=== PATIENT | male | born 1995 | race Caucasian/White ===

== ENCOUNTER 2019-04-11 17:16 | Emergency (ER) | payer SELFPAY ==
[2019-04-11 17:23] VITALS: BP 140/80; PULSE 110; RESP 18; TEMP 37; O2SAT 99
--- NOTE | 2019-04-11 17:35 | W.ED.GENAD ---
Discharge Plan Disposition Patient Disposition: HOME Condition: Improving Discharge Details Chief Complaint: Laceration Clinical Impression: Laceration of left thumb Primary Care Provider: Unknown,Unknown ED Provider: José Sanches Discharge Instructions Instructions: Laceration (ED) Additional Instructions: Leave dressing in place for 72 to 96 hours. Then may remove and perform once daily dressing changes for approximately another week. Return to the emergency department for any acute concern including development of fever, redness, foul-smelling discharge from the wound or any other acute concern. Medical Decision Making 24-year-old otherwise healthy male presents with avulsion injury to the distal tip of his left thumb that occurred while using a kitchen mandolin. Irrigated, cleansed, no evidence of foreign body. No indication for suture repair. Gelfoam and Vaseline impregnated gauze were placed followed by Kerlix and tube gauze. Patient will leave in place for 72 to 96 hours, then may remove and switch to daily dressing changes. He understands return precautions to the ER. HPI General Mode of arrival: ambulatory. Date/Time Provider Initiated Documentation: 04/11/19 17:18. Limitations to Documentation: no limitations. Information obtained by: patient and family. History of Present Illness 24 year old M presents to the emergency department with the chief complaint of Left thumb avulsion from a mandolin, described as mild, and is localized to the left and upper extremity. Patient reports no radiation. Patient started experiencing this minute(s) and it has been constant. No relieving factors improve symptom(s), No exacerbating factors reported . Patient did receive the following treatments prior to arrival, other (Dressing placed) Related Data Allergies Allergy/AdvReac Type Severity Reaction Status Date / Time strawberry Allergy Unverified 04/11/19 17:27 metoprolol AdvReac Intermediate Unverified 04/11/19 17:27 General Stated Complaint: Laceration CLIFTON: 3 Review of Systems Narrative: Tetanus up-to-date. No other injury. States he has a chronically elevated heart rate that is normal for him. 4 systems reviewed and otherwise negative [facility] Social History Smoking/Tobacco Use Status: Never Substance use type: does not use Do you feel safe at home: Yes Do you feel safe in your relationship?: Yes Exam Narrative Exam Narrative: GEN: awake, alert, oriented 3. Pleasant, well groomed, interactive. HEAD: Normocephalic, atraumatic ENT: Mucous membranes moist, External ear exam unremarkable EYES: PERRL, EOMI EXT: Full ROM, no edema, no rash. The left thumb with distal avulsion measuring approximately 1 x 0.5 cm. Its distal to the nail. Sensation is intact. Neuro: Grossly normal neurologic exam, conversant, interactive. Psych: Speech fluent, thoughts congruent, affect normal Course Vital Signs Vital signs: Vital Signs Temperature 37 C 04/11/19 17:23 Pulse 110 H 04/11/19 17:23 Respiratory Rate 18 04/11/19 17:23 Blood Pressure 140/80 04/11/19 17:23 Pulse Oximetry 99 04/11/19 17:23 Temperature 37 C 04/11/19 17:23 Temperature Source Temporal Artery Scan 04/11/19 17:23 Pulse 110 H 04/11/19 17:23 Respiratory Rate 18 04/11/19 17:23 Respiratory Effort 04/11/19 17:28 Blood Pressure 140/80 04/11/19 17:23 Blood Pressure Position Sitting 04/11/19 17:23 Pulse Oximetry 99 04/11/19 17:23 Oxygen Delivery Method Room Air 04/11/19 17:23 Oxygen Flow Rate 0 04/11/19 17:23
== END 2019-04-11 17:50 | disposition home or self-care (01) ==
LOC: ER 19:03
PROVIDERS: Emergency Provider Emergency Medicine
DX: S61.012A Laceration without foreign body of left thumb without damage to nail, initial encounter (principal); W29.0XXA Contact with powered kitchen appliance, initial encounter
CPT/HCPCS: 99282

== ENCOUNTER 2022-10-11 08:09 | Emergency (ER) | payer SELFPAY ==
[2022-10-11 08:14] VITALS: BP 155/79; PULSE 90; RESP 20; TEMP 37; O2SAT 99
--- NOTE | 2022-10-11 08:38 | DI.RAD_ITS ---
Exam(s) XR THUMB LT EXAM: XR THUMB LT CLINICAL HISTORY: pain at base of thumb. TECHNIQUE: 2D digital imaging was performed. COMPARISON: No exams were available for comparison FINDINGS: 3 views No evidence of acute fracture or dislocation no abnormal soft tissue densities. No radiopaque foreig n bodies. No degenerative changes in the thumb and other fingers, including the 1st carpometacarpal joint. IMPRESSION: No significant osseous findings. DATA REPOSITORY: RADIATION DOSE DELIVERED:
--- NOTE | 2022-10-11 09:01 | ED.GENADUL_ITS ---
Discharge Plan Disposition Patient Disposition: Home Discharge Details Clinical Impression: Left thumb sprain Primary Care Provider: None,None ED Provider: Leonela Ryder Home Meds and New Rx's Prescriptions: No Action No Known Home Meds Discharge Instructions Additional Instructions: Take ibuprofen and Tylenol as needed for pain Rest for the next couple days With persistent pain in 1 week, follow-up with orthopedics use brace as needed Return earlier should you have new or worsening complaints Stand Alone Forms: Work Release Referrals: Gil Hunter MD [ [facility] STAFF PHYSICIAN] - Medical Decision Making X-ray was ordered secondary to left thumb tenderness, no evidence of skiers thumb Placed in a thumb spica splint for comfort X-ray reviewed per radiology interpretation my review does not show evidence of acute abnormality Will rest for the next week Ibuprofen and Tylenol as needed pain Return precautions reviewed and patient expressed understanding HPI General Date/Time Provider Initiated Documentation: 10/11/22 08:23 . HPI Narrative: This 27-year-old male presents with report of hand injury at work. He states a battery fell on his palm facing up. He now has pain with movement of his thumb but denies weakness. Denies any additional injuries. Related Data Home Medications Medication Instructions Recorded Confirmed Unknown [No Known Home Meds] 10/11/22 10/11/22 Allergies Allergy/AdvReac Type Severity Reaction Status Date / Time strawberry Allergy Unverified 04/11/19 17:27 metoprolol AdvReac Intermediate Unverified 04/11/19 17:27 General Stated Complaint: Orthopedic CLIFTON: 4 PFSH All Active Problems (Updated 10/11/22 @ 09:04 by CHAR Nichols) Left thumb sprain (Acute) Social History Smoking/Tobacco Use Status: Never Smoking risk assessment performed?: Yes Substance use type: does not use Do you feel safe at home: Yes Do you feel safe in your relationship?: Yes Exam Narrative Exam Narrative: Left thumb with tenderness, neurovascularly intact Course Vital Signs Vital signs: Vital Signs Temperature 37 C 10/11/22 08:14 Pulse 90 10/11/22 08:14 Respiratory Rate 20 10/11/22 08:14 Blood Pressure 155/79 H 10/11/22 08:14 Pulse Oximetry 99 10/11/22 08:14 Temperature 37 C 10/11/22 08:14 Pulse 90 10/11/22 08:14 Respiratory Rate 20 10/11/22 08:14 Respiratory Effort Normal, Non-Labored 10/11/22 08:17 Blood Pressure 155/79 H 10/11/22 08:14 Blood Pressure Position Sitting 10/11/22 08:14 Pulse Oximetry 99 10/11/22 08:14 Oxygen Delivery Method Room Air 10/11/22 08:14 Oxygen Flow Rate 0 10/11/22 08:14 Pain Level 2 10/11/22 08:14 Comment 8 with movement 10/11/22 08:14
--- NOTE | 2022-10-11 19:48 | NUR.NOTE ---
Referral to Care Management to establish pcp routinely.Nursing Note:
== END 2022-10-11 09:07 | disposition home or self-care (01) ==
PROVIDERS: Emergency Provider Physician Assistant
DX: S63.602A Unspecified sprain of left thumb, initial encounter (principal); W20.8XXA Other cause of strike by thrown, projected or falling object, initial encounter; Y99.0 Civilian activity done for income or pay
CPT/HCPCS: 29130; 99283; 73140

== ENCOUNTER 2024-05-19 12:48 | Outpatient (CLI) | payer OTHER, SELFPAY ==
--- NOTE | 2024-05-19 13:48 | DI.RAD_ITS ---
Exam(s) XR ANKLE LT COMPLETE EXAM: XR ANKLE LT COMPLETE CLINICAL HISTORY: Pain in lt foot, M79.672. TECHNIQUE: 2D digital imaging was performed. COMPARISON: No exams were available for comparison FINDINGS: 3 views No evidence of fracture or widening the ankle mortise. Talar dome unremarkable. No soft tissue swel ling. Bone density normal. Small enthesophyte is noted on the posterior calcaneus. There is no inf erior calcaneal spur. IMPRESSION: No acute osseous findings in the left ankle. DATA REPOSITORY: RADIATION DOSE DELIVERED:
--- NOTE | 2024-05-19 13:49 | DI.RAD_ITS ---
Exam(s) XR FOOT LT COMPLETE EXAM: XR FOOT LT COMPLETE CLINICAL HISTORY: Pain in lt foot, M79.672. TECHNIQUE: 2D digital imaging was performed. COMPARISON: No exams were available for comparison FINDINGS: 3 views There is no evidence of fracture or diastasis of the Lisfranc joint. Bone density normal. No osseou s lesions. No pes planus. Small enthesophyte on the posterior aspect of the calcaneus Achilles inse rtion site is noted. There is no inferior calcaneal spur. Great toe metatarsophalangeal joint appears unremarkable as do the other MTP joints and TMT joints IMPRESSION: No significant osseous findings in the left foot. DATA REPOSITORY: RADIATION DOSE DELIVERED:
== END 2024-05-19 13:08 ==
LOC: DI 12:49
PROVIDERS: Visit Provider Physician Assistant Medical
DX: M79.672 Pain in left foot (principal)
CPT/HCPCS: 73610; 73630

== ENCOUNTER 2024-12-23 22:44 | Outpatient (REF) | payer SELFPAY ==
[2024-12-27 11:47] LABS: Syphilis Serology (RPR) Negative (Negative)
== END 2024-12-23 22:45 | disposition home or self-care (01) ==
LOC: LBN 22:44
PROVIDERS: Visit Provider Physician Assistant
DX: R21 Rash and other nonspecific skin eruption (principal)
CPT/HCPCS: 86592